=== PATIENT | female | born 1985 | race Caucasian/White ===

== ENCOUNTER 2017-01-16 09:33 | Observation (INO) ==
[2017-01-16] MEDS ORDERED: BISACODYL 10 MG SUPP RECTAL PRN (10:24)
[2017-01-16] MEDS ORDERED: DEXTROSE 5% LACTATED RINGERS 500 ML IV ONE (10:24)
[2017-01-16] MEDS ORDERED: MAGNESIUM HYDROXIDE SUSP 30 ML UDCUP PO PRN (10:24)
[2017-01-16] MEDS ORDERED: ONDANSETRON 4 MG/2 ML VIAL IV PRN (10:24)
[2017-01-16 10:54] LABS: Basophils % 0.2 % (0.0-0.8); Eosinophils % 0.2 % (0.00-10.9); Hematocrit 39.3 VOL% (35.7-47.0); Hemoglobin 14.1 GM/DL (12.0-16.0); Immature Granulocytes % 0.5 %; Immature Granulocytes Absolute 0.05 #; Lymphocytes % 20.1 % (21.3-54.2); Mean Corpuscular HGB Conc 35.9 GM/DL (32-36); Mean Corpuscular Hemoglobin 28 PG (27-34); Mean Corpuscular Volume 77.7 FL (87-102); Mean Platelet Volume 9.7 FL (9.6-12.0); Monocytes # 0.4 10*3/uL (0.11-0.8); Monocytes % 3.5 % (1.7-12.7); Neutrophils # 7.6 10*3/uL (1.4-7.4); Neutrophils % 75.5 % (38.7-73.9); Platelet Count 192 T/CUMM (130-400); Red Blood Count 5.06 MC/CUMM (3.8-5.5); Red Cell Distribution Width 13.2 % (9.3-17.3); White Blood Count 10.1 T/CUMM (4-12)
[2017-01-16] MEDS: FAMOTIDINE 20 MG/2 ML VIAL IV SCH ×2 (11:15→22:39)
[2017-01-16 11:27] LABS: Albumin 3.7 G/DL (3.4-5.0); Bilirubin,Total 1.5 MG/DL (0.2-1.0); Calcium 9.6 MG/DL (8.5-10.1); Osmolality,Calculated 270.8 MOS/KG (273-304); Potassium 3.6 MMOL/L (3.5-5.1); Total Protein 6.9 G/DL (6.4-8.3)
[2017-01-16] MEDS: LACTATED RINGERS 1,000 ML IV SCH ×2 (11:40→19:55)
[2017-01-16 14:58] LABS: Apearance,Urine CLEAR (Clear); Bacteria,Urine Occasional /HPF (Few); Bilirubin,Urine Negative (Negative); Blood, Urine Negative (Negative); Glucose,Urine (UA) >=500 mg/dL (Negative); Ketones,Urine 20 mg/dL (Negative); Mucus,Urine Occasional /LPF (Occasional); Nitrite,Urine Negative (Negative); Protein,Urine Negative; RBC,Urine 1 /HPF (0-4); Squamous Epithelial Cell,Urine Occasional /HPF (0-10); Urine Color Yellow (Yellow); Urine Specific Gravity 1.005 (1.001-1.035); WBC,Urine 1 /HPF (0-6)
[2017-01-16] MEDS: ACETAMINOPHEN 325 MG TABLET PO PRN ×2 (16:10→21:55)
[2017-01-16] MEDS: DOCUSATE SODIUM 100 MG CAPSULE PO SCH (21:29)
[2017-01-17] MEDS: LACTATED RINGERS 1,000 ML IV SCH (03:19)
--- NOTE | 2017-01-17 09:24 | OB/GYN Progress Note ---
Assessment and Plan (1) Hyperemesis gravidarum before end of 22 week gestation with carbohydrate depletion Status: Acute Assessment and plan: IUP at 12 weeks with hyperemesis. Dietary consult. If pt does well after ambulating ok to discharge home. the pt already has a follow up appointment with me. She does not require any medication at this time. 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 She has not had any vomiting since she has been here and she is tolerating a regular diet. She denies any obstetrical issues, Exam OIL CHANGER - Constitutional Vitals: Vital Signs Temp Pulse Resp BP Pulse Ox 01/17/17 08:00 97.4 F L 78 20 120/61 99 01/17/17 04:00 97.8 F 77 18 116/67 96 01/17/17 02:00 18 01/17/17 00:03 97.5 F L 81 20 111/58 99 01/16/17 19:55 98.1 F 76 20 110/70 98 01/16/17 16:00 98.3 F 81 18 107/72 98 01/16/17 15:52 98.3 F 81 18 107/72 98 01/16/17 12:00 97.5 F L 87 20 110/63 100 01/16/17 11:43 97.5 F L 87 20 110/63 100 01/16/17 10:00 98.2 F 105 H 20 127/79 97 General appearance: normal weight, no acute distress - Respiratory Respiratory exam: Absent: accessory muscle use - Cardiovascular Cardiovascular exam: Present: regular rate and rhythm - Extremities Exam Extremities exam: Absent: calf tenderness - Neurological Exam Neurological exam: Present: alert, oriented X3 - Psychiatric Psychiatric exam: Present: normal affect, normal mood - Skin Skin exam: Present: normal color Results - Labs CBC & BMP: 01/16/17 10:47 01/16/17 10:47
[2017-01-17] MEDS: DOCUSATE SODIUM 100 MG CAPSULE PO SCH (09:50)
[2017-01-17] MEDS: FAMOTIDINE 20 MG/2 ML VIAL IV SCH (10:07)
[2017-01-17 13:20] VITALS: BP 118/70
== END 2017-01-17 14:30 | disposition home or self-care (01) ==
LOC: N.OB
PROVIDERS: ADMIT Obstetrics & Gynecology; ATTEND Obstetrics & Gynecology

== ENCOUNTER 2017-02-04 13:43 | Observation (INO) ==
[2017-02-04] MEDS ORDERED: ONDANSETRON 4 MG/2 ML VIAL IV PRN (16:05)
[2017-02-04] MEDS ORDERED: LACTATED RINGERS 500 ML IV ONE (16:05)
[2017-02-04] MEDS ORDERED: BISACODYL 10 MG SUPP RECTAL PRN (16:05)
[2017-02-04] MEDS ORDERED: ACETAMINOPHEN 325 MG TABLET PO PRN (16:05)
[2017-02-04] MEDS ORDERED: MAGNESIUM HYDROXIDE SUSP 30 ML UDCUP PO PRN (16:05)
[2017-02-04] MEDS: FAMOTIDINE 20 MG/2 ML VIAL IV SCH (16:28)
[2017-02-04 16:36] LABS: Basophils % 0.1 % (0.0-0.8); Eosinophils # 0.1 10*3/uL (0.0-0.87); Eosinophils % 1.2 % (0.00-10.9); Hematocrit 33.7 VOL% (35.7-47.0); Hemoglobin 11.9 GM/DL (12.0-16.0); Immature Granulocytes % 0.4 %; Immature Granulocytes Absolute 0.04 #; Lymphocytes # 2.1 10*3/uL (1.4-4.0); Lymphocytes % 23.8 % (21.3-54.2); Mean Corpuscular HGB Conc 35.3 GM/DL (32-36); Mean Corpuscular Hemoglobin 28 PG (27-34); Mean Corpuscular Volume 79.1 FL (87-102); Mean Platelet Volume 10.2 FL (9.6-12.0); Monocytes # 0.4 10*3/uL (0.11-0.8); Monocytes % 4.6 % (1.7-12.7); Neutrophils # 6.3 10*3/uL (1.4-7.4); Neutrophils % 69.9 % (38.7-73.9); Platelet Count 196 T/CUMM (130-400); Red Blood Count 4.26 MC/CUMM (3.8-5.5); Red Cell Distribution Width 13.8 % (9.3-17.3)
[2017-02-04 16:37] LABS: Apearance,Urine Slightly Hazy (Clear); Bacteria,Urine Moderate /HPF (Few); Bilirubin,Urine Negative (Negative); Blood, Urine Negative (Negative); Glucose,Urine (UA) Negative (Negative); Ketones,Urine 20 mg/dL (Negative); Mucus,Urine Moderate /LPF (Occasional); Nitrite,Urine Negative (Negative); Protein,Urine 30 MG/DL; RBC,Urine 2 /HPF (0-4); Squamous Epithelial Cell,Urine Occasional /HPF (0-10); Urine Color Yellow (Yellow); Urine Specific Gravity 1.016 (1.001-1.035); WBC,Urine 3 /HPF (0-6)
[2017-02-04 16:52] LABS: Albumin 3.1 G/DL (3.4-5.0); Bilirubin,Total 0.8 MG/DL (0.2-1.0); Calcium 8.8 MG/DL (8.5-10.1); Osmolality,Calculated 271.7 MOS/KG (273-304); Potassium 3.5 MMOL/L (3.5-5.1); Total Protein 5.8 G/DL (6.4-8.3)
[2017-02-04] MEDS: LACTATED RINGERS 1,000 ML IV SCH ×2 (16:52→23:00)
--- NOTE | 2017-02-04 17:05 | OB/GYN History & Physical ---
History of Present Illness Chief complaint: nausea/vomiting History of present illness: Ms. DIMAS is a 32 year old female at 15 weeks + with EDC of 07/26/17 who is here today complaining of nausea and vomiting that has worsened since yesterday. The pt denies cramping or bleeding. She denies diarrhea. The pt does not recall eating anything bad. There is no one sick at home. Home Medications Medication Instructions Recorded Confirmed Type Metoclopramide Tab [Reglan Tab] 10 mg PO Q6H 01/16/17 02/04/17 History Pnv No.95/Ferrous Fum/Folic AC 1 each PO DAILY 01/16/17 02/04/17 History [ Tablet] Allergies Allergy/AdvReac Type Severity Reaction Status Date / Time No Known Allergies Allergy Verified 01/16/17 10:13 Medical,Surgical,& Family Hx - Medical History Neurology: History of: Seizures (hasnt had since 8 years old) HEENT: Comment Only: HEENT Problems (nose broken, had 2 surgery to repair) Musculoskeletal: History of: Musculoskeletal Problems (bunions removed) - Surgical History Reproductive Surgeries: Surgical HX of;: Section (1) - Social History Smoking Status: Never smoker Frequency of Alcohol Use: None Type of Drug Use: None Exam APN - Constitutional Vitals: Vital Signs Temp Pulse Resp BP Pulse Ox 02/04/17 15:38 99.1 F 89 18 112/73 98 02/04/17 14:50 98.2 F 90 18 117/70 95 General appearance: normal weight, no acute distress - Respiratory Respiratory exam: Absent: accessory muscle use - Cardiovascular Cardiovascular exam: Present: regular rate and rhythm - GI/Abdominal GI/Abdominal exam: Absent: guarding, tenderness, rebound - Extremities Exam Extremities exam: Absent: calf tenderness - Back Exam Back exam: Present: normal inspection - Neurological Exam Neurological exam: Present: alert, oriented X3 Assessment and Plan (1) Hyperemesis gravidarum before end of 22 week gestation with carbohydrate depletion Status: Acute Assessment and plan: admit for IV fluids and antiemetic. no s/s infection at this time so we will hold off on antibiotics Current Visit: No Results - Labs CBC & BMP: 02/04/17 16:23 02/04/17 16:23
[2017-02-04] MEDS: DOCUSATE SODIUM 100 MG CAPSULE PO SCH (22:00)
[2017-02-05] MEDS: FAMOTIDINE 20 MG/2 ML VIAL IV SCH (04:15)
[2017-02-05] MEDS: LACTATED RINGERS 1,000 ML IV SCH (06:44)
[2017-02-05 07:25] VITALS: BP 103/58
[2017-02-05] MEDS: DOCUSATE SODIUM 100 MG CAPSULE PO SCH (08:28)
--- NOTE | 2017-02-05 09:14 | OB/GYN Progress Note ---
Assessment and Plan (1) Hyperemesis gravidarum before end of 22 week gestation with carbohydrate depletion Status: Acute Assessment and plan: IUP at 15+ weeks with nausea/vomiting. The pt is better and desires to go home. 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 Sh eis tolerating PO well. She desires to go home Exam RETAIL ACCOUNT MANAGER - Constitutional Vitals: Vital Signs Temp Pulse Resp BP Pulse Ox 02/05/17 07:25 97.9 F 81 18 103/58 99 02/05/17 06:00 18 02/05/17 04:00 97.9 F 88 18 109/64 100 02/05/17 02:00 18 02/05/17 00:00 98.2 F 73 18 105/54 99 02/04/17 20:00 99.3 F 85 18 116/70 99 02/04/17 15:38 99.1 F 89 18 112/73 98 02/04/17 14:50 98.2 F 90 18 117/70 95 General appearance: normal weight - Respiratory Respiratory exam: Absent: accessory muscle use - Cardiovascular Cardiovascular exam: Present: regular rate and rhythm - GI/Abdominal GI/Abdominal exam: Absent: guarding, tenderness, rebound - Extremities Exam Extremities exam: Absent: calf tenderness - Neurological Exam Neurological exam: Present: alert, oriented X3 - Psychiatric Psychiatric exam: Present: normal affect, normal mood - Skin Skin exam: Present: normal color, warm Results - Labs CBC & BMP: 02/04/17 16:23 02/04/17 16:23
== END 2017-02-05 10:30 | disposition home or self-care (01) ==
LOC: N.OB
PROVIDERS: ADMIT Obstetrics & Gynecology; ATTEND Obstetrics & Gynecology

== ENCOUNTER 2017-07-11 19:22 | Inpatient (IN) ==
[2017-07-11 19:54] LABS: Apearance,Urine CLOUDY (Clear); Bacteria,Urine Occasional /HPF (Few); Bilirubin,Urine Negative (Negative); Blood, Urine Negative (Negative); Glucose,Urine (UA) Negative (Negative); Ketones,Urine Negative (Negative); Mucus,Urine Occasional /LPF (Occasional); Nitrite,Urine Negative (Negative); Protein,Urine Negative; RBC,Urine 2 /HPF (0-4); Squamous Epithelial Cell,Urine Occasional /HPF (0-10); Urine Color Yellow (Yellow); Urine Specific Gravity 1.013 (1.001-1.035); WBC,Urine 3 /HPF (0-6)
[2017-07-11] MEDS ORDERED: BUTORPHANOL 2 MG/ML VIAL IV ONE (20:21)
[2017-07-11] MEDS ORDERED: PROMETHAZINE 25 MG/1 ML VIAL IM ONE (20:21)
[2017-07-11] MEDS ORDERED: LACTATED RINGERS 1,000 ML IV ONE (20:22)
[2017-07-11] MEDS ORDERED: ONDANSETRON 4 MG/2 ML VIAL IV PRN (21:53)
[2017-07-11] MEDS ORDERED: BUTORPHANOL 2 MG/ML VIAL IV PRN (21:53)
[2017-07-11] MEDS: AMPICILLIN INJ 2,000 MG in SODIUM CHLORIDE 0.9% 50 ML IV SCH (22:00)
[2017-07-11] MEDS: LACTATED RINGERS 1,000 ML IV SCH (22:00)
[2017-07-12] MEDS: AMPICILLIN INJ 2,000 MG in SODIUM CHLORIDE 0.9% 50 ML IV SCH ×2 (03:42→10:57)
[2017-07-12] MEDS: LACTATED RINGERS 1,000 ML IV SCH (10:10)
[2017-07-12] MEDS ORDERED: MEPERIDINE 50 MG/1 ML VIAL IV PRN (10:21)
[2017-07-12] MEDS ORDERED: ONDANSETRON 4 MG/2 ML VIAL IV PRN ×2 (10:21→19:34)
[2017-07-12] MEDS ORDERED: hydrOXYzine HCL 25 MG/1 ML VIAL IM PRN (10:29)
[2017-07-12] MEDS ORDERED: ePHEDrine 50 MG/ML AMP IV PRN (10:29)
[2017-07-12] MEDS ORDERED: FAMOTIDINE 20 MG/2 ML VIAL IV ONE (10:29)
[2017-07-12] MEDS ORDERED: diphenhydrAMINE 50 MG/1 ML VIAL IV PRN (10:29)
[2017-07-12] MEDS ORDERED: LACTATED RINGERS 1,000 ML IV SCH (10:30)
[2017-07-12] MEDS ORDERED: fentaNYL 2 MCG/ROPIV 0.2% EPID 150 ML EPIDURAL SCH (10:30)
[2017-07-12] MEDS ORDERED: OXYTOCIN/LR 20 UNIT/1,000 ML BAG IV SCH (10:30)
[2017-07-12 10:55] LABS: Basophils % 0.2 % (0.0-0.8); Eosinophils % 0.3 % (0.00-10.9); Hematocrit 33.9 VOL% (35.7-47.0); Hemoglobin 11.2 GM/DL (12.0-16.0); Immature Granulocytes % 0.5 %; Immature Granulocytes Absolute 0.05 #; Lymphocytes # 2.5 10*3/uL (1.4-4.0); Lymphocytes % 24.6 % (21.3-54.2); Mean Corpuscular Hemoglobin 24 PG (27-34); Mean Corpuscular Volume 73.7 FL (87-102); Mean Platelet Volume 10.5 FL (9.6-12.0); Monocytes # 0.6 10*3/uL (0.11-0.8); Monocytes % 5.9 % (1.7-12.7); Neutrophils # 6.9 10*3/uL (1.4-7.4); Neutrophils % 68.5 % (38.7-73.9); Platelet Count 216 T/CUMM (130-400); Red Cell Distribution Width 14.1 % (9.3-17.3); White Blood Count 10.1 T/CUMM (4-12)
[2017-07-12] MEDS ORDERED: CITRIC ACID/SODIUM CITRATE 30 ML UDCUP ONE (11:01)
[2017-07-12] MEDS ORDERED: CITRIC ACID/SODIUM CITRATE 30 ML UDCUP PO ONE (11:08)
[2017-07-12 11:32] LABS: Albumin 2.8 G/DL (3.4-5.0); Calcium 8.9 MG/DL (8.5-10.1); Osmolality,Calculated 271.7 MOS/KG (273-304); Total Protein 6.3 G/DL (6.4-8.3)
[2017-07-12 13:47] LABS: Apearance,Urine CLEAR (Clear); Bilirubin,Urine Negative (Negative); Blood, Urine Small mg/dL (Negative); Glucose,Urine (UA) Negative (Negative); Ketones,Urine Negative (Negative); Mucus,Urine Occasional /LPF (Occasional); Nitrite,Urine Negative (Negative); Protein,Urine Negative; RBC,Urine <1 /HPF (0-4); Squamous Epithelial Cell,Urine Occasional /HPF (0-10); Urine Color Straw (Yellow); Urine Specific Gravity 1.005 (1.001-1.035); Urine Urobilinogen < 2.0 EU/DL (0.2-1.0); WBC,Urine 1 /HPF (0-6)
[2017-07-12] MEDS ORDERED: LIDOCAINE 1% 50 ML VIAL ONE (15:37)
[2017-07-12] MEDS ORDERED: OXYTOCIN/LR 30 UNIT/1,000 ML BAG IV ONE (15:45)
[2017-07-12] MEDS ORDERED: LANOLIN 50% CREAM 0.3 OZ TUBE TOP PRN (19:34)
[2017-07-12] MEDS ORDERED: HYDROCORTISONE 2.5% RECTAL CREAM 30 GM TUBE TOP PRN (19:34)
[2017-07-12] MEDS ORDERED: RHO(D) IMMUNE GLOBULIN 300 MCG SYRINGE IM ONE (19:34)
[2017-07-12] MEDS ORDERED: OXYTOCIN/LR 20 UNIT/1,000 ML BAG IV ONE (19:34)
[2017-07-12] MEDS ORDERED: oxyCODONE/ACETAMINOPHEN 5-325 MG TABLET PO PRN ×2 (19:34)
[2017-07-12] MEDS ORDERED: BISACODYL 10 MG SUPP RECTAL PRN (19:34)
[2017-07-12] MEDS ORDERED: ACETAMINOPHEN 325 MG TABLET PO PRN (19:34)
[2017-07-12] MEDS ORDERED: WITCH HAZEL PADS 100/JAR TOP PRN (19:34)
[2017-07-12] MEDS ORDERED: MEASLES/MUMPS/RUBELLA VACCINE 0.5 ML VIAL SUBCUT ONE (19:34)
[2017-07-12] MEDS ORDERED: DIPH/TET/ACEL PERT BOOSTER VACCINE 0.5 ML VIAL IM ONE (19:34)
[2017-07-12] MEDS ORDERED: BENZOCAINE 20%/MENTHOL 0.5% SPRAY 56 GM CAN TOP PRN (19:34)
[2017-07-12] MEDS: DOCUSATE SODIUM 100 MG CAPSULE PO SCH (21:35)
[2017-07-12] MEDS: IBUPROFEN 800 MG TABLET PO PRN (21:35)
[2017-07-13 05:20] LABS: Basophils % 0.2 % (0.0-0.8); Eosinophils # 0.2 10*3/uL (0.0-0.87); Eosinophils % 1.5 % (0.00-10.9); Hemoglobin 9.7 GM/DL (12.0-16.0); Immature Granulocytes % 0.5 %; Immature Granulocytes Absolute 0.05 #; Lymphocytes # 3.3 10*3/uL (1.4-4.0); Lymphocytes % 31.5 % (21.3-54.2); Mean Corpuscular HGB Conc 32.3 GM/DL (32-36); Mean Corpuscular Hemoglobin 24 PG (27-34); Mean Corpuscular Volume 74.8 FL (87-102); Mean Platelet Volume 9.9 FL (9.6-12.0); Monocytes # 0.5 10*3/uL (0.11-0.8); Monocytes % 5.2 % (1.7-12.7); Neutrophils # 6.4 10*3/uL (1.4-7.4); Neutrophils % 61.1 % (38.7-73.9); Platelet Count 181 T/CUMM (130-400); Red Blood Count 4.01 MC/CUMM (3.8-5.5); Red Cell Distribution Width 14.1 % (9.3-17.3); White Blood Count 10.5 T/CUMM (4-12)
[2017-07-13] MEDS: DOCUSATE SODIUM 100 MG CAPSULE PO SCH ×2 (09:54→21:01)
[2017-07-13] MEDS: IBUPROFEN 800 MG TABLET PO PRN (09:54)
[2017-07-13] MEDS ORDERED: INFLUENZA VIRUS VACCINE 0.5 ML SYRINGE IM ONE (11:45)
[2017-07-14 09:13] VITALS: BP 111/68
[2017-07-14] MEDS ORDERED: INFLUENZA VIRUS VACCINE 0.5 ML SYRINGE IM ONE (14:34)
[2017-07-14] MEDS: DOCUSATE SODIUM 100 MG CAPSULE PO SCH (14:34)
== END 2017-07-14 15:15 | disposition home or self-care (01) | DRG 560 ==
LOC: N.LAB 19:22 → N.LD 19:25 → N.OB 07-12 19:25
PROVIDERS: ADMIT Obstetrics & Gynecology; ATTEND Obstetrics & Gynecology

== ENCOUNTER 2019-11-24 19:22 | Inpatient (IN) ==
[2019-11-24 20:03] LABS: Apearance,Urine CLEAR (Clear); Bacteria,Urine Few /HPF (Few); Bilirubin,Urine Negative (Negative); Blood, Urine Negative (Negative); Glucose,Urine (UA) 50 mg/dL (Negative); Ketones,Urine Negative (Negative); Mucus,Urine Occasional /LPF (Occasional); Nitrite,Urine Negative (Negative); Protein,Urine Negative; RBC,Urine 3 /HPF (0-4); Squamous Epithelial Cell,Urine Occasional /HPF (0-10); Urine Color Straw (Yellow); Urine Specific Gravity 1.006 (1.001-1.035); Urine Urobilinogen < 2.0 EU/DL (0.2-1.0)
[2019-11-24] MEDS ORDERED: CITRIC ACID/SODIUM CITRATE 30 ML UDCUP PO ONE (20:23)
[2019-11-24] MEDS ORDERED: ONDANSETRON 4 MG/2 ML VIAL IV PRN (20:23)
[2019-11-24] MEDS ORDERED: NALOXONE 0.4 MG/ML VIAL IV PRN (20:23)
[2019-11-24] MEDS ORDERED: FAMOTIDINE 20 MG/2 ML VIAL IV ONE (20:23)
[2019-11-24] MEDS ORDERED: ePHEDrine 50 MG/ML AMP IV PRN (20:23)
[2019-11-24] MEDS ORDERED: fentaNYL 2 MCG/ROPIV 0.2% EPID 100 ML EPIDURAL SCH (20:30)
[2019-11-24 20:49] LABS: Basophils % 0.3 % (0.0-0.8); Eosinophils % 0.3 % (0.00-10.9); Hematocrit 34.7 VOL% (35.7-47.0); Hemoglobin 10.9 GM/DL (12.0-16.0); Immature Granulocytes Absolute 0.12 #; Lymphocytes # 2.6 10*3/uL (1.4-4.0); Lymphocytes % 22.9 % (21.3-54.2); Mean Corpuscular HGB Conc 31.4 GM/DL (32-36); Mean Corpuscular Volume 78.3 FL (87-102); Mean Platelet Volume 10.4 FL (9.6-12.0); Monocytes % 6.1 % (1.7-12.7); Neutrophils % 69.4 % (38.7-73.9); Platelet Count 256 T/CUMM (130-400); Red Blood Count 4.43 MC/CUMM (3.8-5.5); Red Cell Distribution Width 15.2 % (9.3-17.3); White Blood Count 11.5 T/CUMM (4-12)
[2019-11-24 21:07] LABS: Albumin 2.7 G/DL (3.4-5.0); Bilirubin,Total 0.5 MG/DL (0.2-1.0); Calcium 8.8 MG/DL (8.5-10.1); Total Protein 6.9 G/DL (6.4-8.3)
[2019-11-24] MEDS: LACTATED RINGERS 1,000 ML IV PRN (22:00)
[2019-11-25] MEDS: LACTATED RINGERS 1,000 ML IV PRN
[2019-11-25] MEDS ORDERED: OXYTOCIN/LR 20 UNIT/1,000 ML BAG IV SCH (04:00)
[2019-11-25] MEDS ORDERED: miSOPROStoL 200 MCG TABLET ONE (07:40)
[2019-11-25] MEDS ORDERED: LIDOCAINE 1% 50 ML VIAL ONE (07:40)
[2019-11-25 08:47] LABS: Cord Venous Blood PCO2 36.1 MMHG; Cord Venous Blood PO2 32.9 MMHG
[2019-11-25] MEDS ORDERED: LANOLIN 50% CREAM 0.3 OZ TUBE TOP PRN (10:50)
[2019-11-25] MEDS ORDERED: oxyCODONE/ACETAMINOPHEN 5-325 MG TABLET PO PRN (10:50)
[2019-11-25] MEDS ORDERED: DIPH/TET/ACEL PERT BOOSTER VACCINE 0.5 ML VIAL IM ONE (10:50)
[2019-11-25] MEDS ORDERED: RHO(D) IMMUNE GLOBULIN 300 MCG SYRINGE IM ONE (10:50)
[2019-11-25] MEDS ORDERED: BISACODYL 10 MG SUPP RECTAL PRN (10:50)
[2019-11-25] MEDS ORDERED: HYDROCORTISONE 2.5% RECTAL CREAM 30 GM TUBE TOP PRN (10:50)
[2019-11-25] MEDS ORDERED: ACETAMINOPHEN 325 MG TABLET PO PRN (10:50)
[2019-11-25] MEDS ORDERED: WITCH HAZEL PADS 100/JAR TOP PRN (10:50)
[2019-11-25] MEDS ORDERED: OXYTOCIN/LR 20 UNIT/1,000 ML BAG IV ONE (10:50)
[2019-11-25] MEDS ORDERED: MEASLES/MUMPS/RUBELLA VACCINE 0.5 ML VIAL SUBCUT ONE (10:50)
[2019-11-25] MEDS ORDERED: BENZOCAINE 20%/MENTHOL 0.5% SPRAY 56 GM CAN TOP PRN (10:50)
[2019-11-25] MEDS: IBUPROFEN 800 MG TABLET PO PRN ×2 (12:31→21:01)
[2019-11-25] MEDS: oxyCODONE/ACETAMINOPHEN 5-325 MG TABLET PO PRN ×2 (12:32→21:00)
[2019-11-25] MEDS: DOCUSATE SODIUM 100 MG CAPSULE PO SCH (21:01)
[2019-11-26 07:03] LABS: Basophils % 0.3 % (0.0-0.8); Eosinophils # 0.1 10*3/uL (0.0-0.87); Eosinophils % 1.3 % (0.00-10.9); Hematocrit 27.9 VOL% (35.7-47.0); Hemoglobin 8.8 GM/DL (12.0-16.0); Lymphocytes % 29.4 % (21.3-54.2); Mean Corpuscular HGB Conc 31.5 GM/DL (32-36); Mean Corpuscular Volume 78.6 FL (87-102); Mean Platelet Volume 10.6 FL (9.6-12.0); Monocytes % 5.2 % (1.7-12.7); Neutrophils % 62.8 % (38.7-73.9); Platelet Count 204 T/CUMM (130-400); Red Blood Count 3.55 MC/CUMM (3.8-5.5); Red Cell Distribution Width 15.6 % (9.3-17.3); White Blood Count 10.2 T/CUMM (4-12)
[2019-11-26 07:11] LABS: Hypochromasia 1+
[2019-11-26 07:12] LABS: Anisocytosis 1+; Microcytosis 1+; Platelet Estimate Normal; Polychromasia Slight
[2019-11-26] MEDS: DOCUSATE SODIUM 100 MG CAPSULE PO SCH ×2 (08:30→20:25)
[2019-11-26] MEDS: IBUPROFEN 800 MG TABLET PO PRN ×2 (08:30→20:25)
[2019-11-26] MEDS ORDERED: CYCLOBENZAPRINE 10 MG TABLET PO PRN ×2 (10:33→17:01)
[2019-11-27] MEDS: IBUPROFEN 800 MG TABLET PO PRN (08:53)
[2019-11-27] MEDS: DOCUSATE SODIUM 100 MG CAPSULE PO SCH (08:53)
[2019-11-27 11:29] VITALS: BP 120/83
== END 2019-11-27 13:10 | disposition home or self-care (01) | DRG 807 ==
LOC: N.LDOUT 19:22 → N.LD 19:25 → N.OB 11-25 10:50
PROVIDERS: ADMIT Obstetrics & Gynecology; ATTEND Obstetrics & Gynecology